=== PATIENT | male | born 1985 | race African-American/Black ===

== ENCOUNTER 2019-01-14 16:24 | Emergency (ER) | payer MEDICAID ==
[~2019-01-14] VITALS: Ht 182.9 cm; Wt 71.0 kg
[2019-01-14] MEDS ORDERED: KETOROLAC 30MG/ML VIAL IM ONE (22:45)
[2019-01-15 00:35] VITALS: BP 149/74
== END 2019-01-15 00:41 | disposition home or self-care (01) ==
LOC: ER 16:24
DX: M25.562 Pain in left knee (principal); M25.561 Pain in right knee; F12.10 Cannabis abuse, uncomplicated
CPT/HCPCS: 73562; 96372; 99283; J1885; Z7610